=== PATIENT | male | born 1975 | race Caucasian/White ===

== ENCOUNTER 2019-01-21 12:21 | Emergency (ER) | payer MEDICAID ==
[2019-01-21] MEDS ORDERED: SOD CHLORIDE 0.9% 100 ML (12:36)
[2019-01-21] MEDS ORDERED: IOHEXOL 100 ML (12:36)
[2019-01-21 12:38] LABS: ADD MAN DIFF? NO
[2019-01-21 12:43] LABS: POSITIVE DIFF @See below
[2019-01-21] MEDS: SOD CHLORIDE 0.9% 1,000 ML IV (12:54)
[2019-01-21 12:58] LABS: ANION GAP 12 (5-13); BLOOD UREA NITROGEN 12 mg/dl (7-20); CALCIUM 9.1 mg/dl (8.4-10.2); CARBON DIOXIDE 25 mmol/L (21-31); CHLORIDE 108 mmol/L (97-110); CHOL/HDL RATIO 2.8 RATIO; CHOLESTEROL 144 mg/dl (100-200); CREATINE KINASE 93 IU/L (23-200); Estimated GFR > 60 mL/min (>60); GLUCOSE 97 mg/dl (70-220); HDL CHOLESTEROL 50 mg/dl (27-67); LDL CHOLESTEROL,CALCULATED 74 mg/dl; POTASSIUM 4.3 mmol/L (3.5-5.1); SODIUM 145 mmol/L (135-144); TRIGLYCERIDES 100 mg/dl (0-149)
[2019-01-21 13:09] LABS: WHITE BLOOD COUNT 8.5 10^3/ul (4.8-10.8)
[2019-01-21 13:09] LABS: HEMATOCRIT 39.2 % (42.0-52.0); MEAN CORPUSCULAR HEMOGLOBIN 30.1 pg (29.0-33.0); MEAN CORPUSCULAR HGB CONC 33.2 g/dl (32.0-37.0); MEAN CORPUSCULAR VOLUME 90.7 fl (82.0-101.0); MEAN PLATELET VOLUME 10.2 fl (7.4-10.4); PLATELET COUNT 264 10^3/UL (140-415); RED BLOOD COUNT 4.32 10^6/ul (4.70-6.10); RED CELL DISTRIBUTION WIDTH 12.7 % (11.5-14.5)
[2019-01-21 13:10] LABS: BASOPHILS % 0.4 % (0.0-2.0); CK-MB 0.93 ng/ml (0.0-2.4); EOSINOPHILS # 0.1 10^3/ul (0.0-0.5); EOSINOPHILS % 1.2 % (0.0-7.0); LYMPHOCYTES # 1.6 10^3/ul (0.8-2.9); LYMPHOCYTES % 19.1 % (15.0-51.0); MONOCYTE # 0.5 10^3/ul (0.3-0.9); MONOCYTES % 6.2 % (0.0-11.0); NEUTROPHIL # 6.2 10^3/ul (1.6-7.5); NEUTROPHILS % 72.5 % (39.0-77.0); TROPONIN-I < 0.012 ng/ml (0.000-0.120)
[2019-01-21 13:22] LABS: HEMOGLOBIN A1C 5.2 % (0-5.9)
[2019-01-21 13:30] LABS: PARTIAL THROMBOPLASTIN TIME 23.3 Sec (23.0-35.0)
[2019-01-21] MEDS ORDERED: ALTEPLASE 100 MG INJ IV* (13:30)
[2019-01-21] MEDS ORDERED: SOD CHLORIDE 0.9% 50 ML IV (13:30)
[2019-01-21] MEDS ORDERED: ALTEPLASE (tPA) 1 MG/ML BOLUS SYG IV* (13:30)
[2019-01-21 13:39] LABS: INR 0.97
== END 2019-01-21 14:25 | disposition short-term general hospital (02) ==
LOC: E/R 12:21
DX: I63.50 Cerebral infarction due to unspecified occlusion or stenosis of unspecified cerebral artery (principal); R40.2142 Coma scale, eyes open, spontaneous, at arrival to emergency department; R40.2362 Coma scale, best motor response, obeys commands, at arrival to emergency department; R40.2252 Coma scale, best verbal response, oriented, at arrival to emergency department; Z87.891 Personal history of nicotine dependence
CPT/HCPCS: 70450; 70496; 70498; 71045; 80048; 80061; 80307; 82550; 82553; 83036; 84484; 85025; 85610; 85730; 93005; 99285-25

== ENCOUNTER 2019-02-22 21:57 | Emergency (ER) | payer SELFPAY, MEDICAID | END 2019-02-23 00:24 | disposition left against medical advice (07) | LOC: FTE 21:57 | DX: Z53.21 Procedure and treatment not carried out due to patient leaving prior to being seen by health care provider (principal) ==